=== PATIENT | female | born 1975 | race Asian ===

== ENCOUNTER 2017-07-15 15:26 | Observation (INO) | payer OTHER ==
--- NOTE | 2017-07-15 16:09 | ED Physician Documentation ---
PD HPI FEMALE - Stated complaint Stated Complaint: FEMALE - Chief complaint Chief Complaint: Abd Pain - History obtained from History obtained from: Patient PD PAST MEDICAL HISTORY - Present Medications Home Medications: Ambulatory Orders Medication Instructions Recorded Confirmed No Known Home Medications [No 07/15/17 07/15/17 Known Home Medications] - Allergies Allergies/Adverse Reactions: Allergies Allergy/AdvReac Type Severity Reaction Status Date / Time mefenamic acid Allergy Itching Verified 07/15/17 15:49 Results - Vitals Vitals: Vital Signs - 24 hr 07/15/17 15:41 Temperature 37.0 C Heart Rate 100 Respiratory 18 Rate Blood Pressure 134/82 H O2 Saturation 100 Oxygen O2 Source Room air
[2017-07-15 16:10] LABS: BILIRUBIN,URINE NEGATIVE (NEGATIVE); GLUCOSE, URINE (UA) NEGATIVE (NEGATIVE); KETONES,URINE (UA) NEGATIVE (NEGATIVE); LEUKOCYTE ESTERASE, URINE NEGATIVE (NEGATIVE); NITRITE,URINE NEGATIVE (NEGATIVE); OCCULT BLOOD,URINE LARGE (NEGATIVE); PROTEIN,URINE NEGATIVE (NEGATIVE); UROBILINOGEN,URINE 0.2 (NORMAL) E.U./dL (NORMAL)
[2017-07-15 16:13] LABS: CLARITY,URINE CLEAR (CLEAR)
[2017-07-15 16:14] LABS: HCG UR QUAL NEGATIVE
[2017-07-15] MEDS ORDERED: SODIUM CHLORIDE 0.9% 1,000 ML IV ONE (16:15)
--- NOTE | 2017-07-15 16:19 | ED Physician Documentation ---
PD HPI FEMALE - Stated complaint Stated Complaint: FEMALE - Chief complaint Chief Complaint: Abd Pain - History obtained from History obtained from: Patient - History of Present Illness Timing - onset: Other (1 month of heavy vaginal bleeding without cramps/pain. Has H/O endometrial thickening treated with provera, not currently. Sent from clinic as she was orthostatic.) Timing - details: Gradual onset, Still present Pain level max: 0 Associated symptoms: Vaginal bleeding. No: Abdominal pain, Pelvic pain, Vaginal discharge Similar symptoms before: Diagnosis (thick endometrium) Recently seen: Not recently seen Review of Systems Ten Systems: 10 systems reviewed and negative Constitutional: reports: Fatigue. denies: Fever, Chills Ears: reports: Reviewed and negative Cardiac: reports: Reviewed and negative Respiratory: reports: Reviewed and negative GI: denies: Abdominal Pain, Nausea, Vomiting, Constipation, Diarrhea Neurologic: denies: Syncope PD PAST MEDICAL HISTORY - Past Medical History Past Medical History: Yes DIRECTOR OF QUALITY CONTROL: Endometriosis - Present Medications Home Medications: Ambulatory Orders Medication Instructions Recorded Confirmed No Known Home Medications [No 07/15/17 07/15/17 Known Home Medications] - Allergies Allergies/Adverse Reactions: Allergies Allergy/AdvReac Type Severity Reaction Status Date / Time mefenamic acid Allergy Itching Verified 07/15/17 15:49 - Social History Does the pt smoke?: No Does the pt drink ETOH?: No - Family History Family history: reports: Non contributory PD ED PE NORMAL - Vitals Vital signs reviewed: Yes - General General: Alert and oriented X 3, No acute distress - Neck Neck: Supple, no meningeal sign, No bony TTP - Cardiac Cardiac: RRR, No murmur - Respiratory Respiratory: No respiratory distress, Clear bilaterally - Abdomen Abdomen: Normal bowel sounds, Soft, Non tender - Extremities Extremities: No edema, No calf tenderness / cord - Neuro Neuro: Alert and oriented X 3, Normal speech - Psych Psych: Normal mood, Normal affect Results - Vitals Vitals: Vital Signs - 24 hr 07/15/17 07/15/17 07/15/17 15:41 18:52 19:10 Temperature 37.0 C 36.1 C L 36.1 C L Heart Rate 100 90 93 Respiratory 18 16 25 H Rate Blood Pressure 134/82 H 128/77 132/76 H O2 Saturation 100 99 07/15/17 07/15/17 07/15/17 19:14 19:20 19:27 Temperature 36.3 C L 36.2 C L 36.3 C L Heart Rate 92 95 92 Respiratory 20 23 25 H Rate Blood Pressure 127/76 127/77 129/80 O2 Saturation 07/15/17 07/15/17 07/15/17 19:46 20:07 20:35 Temperature 36.5 C 36.6 C 36.2 C L Heart Rate 90 96 96 Respiratory 22 23 25 H Rate Blood Pressure 129/76 132/72 H 145/78 H O2 Saturation 07/15/17 07/15/17 07/15/17 20:46 20:50 20:55 Temperature 36.7 C 36.5 C 36.5 C Heart Rate 88 90 94 Respiratory 20 20 23 Rate Blood Pressure 125/72 135/79 H 129/82 H O2 Saturation 07/15/17 07/15/17 21:16 21:23 Temperature 36.4 C L Heart Rate 98 100 Respiratory 23 24 Rate Blood Pressure 125/107 H 138/86 H O2 Saturation Oxygen O2 Source Room air - Labs Labs: Laboratory Tests 07/15/17 07/15/17 07/15/17 16:00 16:15 16:15 WBC 10.3 RBC 3.38 L Hgb 5.9 L* Hct 20.0 L* MCV 59.1 L MCH 17.5 L MCHC 29.7 L RDW 20.8 H Plt Count 478 H MPV 8.0 Neut # 7.0 H Lymph # 2.2 [place] # 0.8 Eos # 0.2 Baso # 0.1 Absolute Nucleated RBC 0.14 Nucleated RBC % 1.4 RBC Morph Micro Appear 1+ STOMATOCYTES Sodium 135 Potassium 3.8 Chloride 102 Carbon Dioxide 23 Anion Gap 10.0 BUN 13 Creatinine 0.8 Estimated GFR (MDRD) 79 L Glucose 126 H Calcium 8.6 Total Bilirubin 0.4 AST 39 ALT 32 Alkaline Phosphatase 80 Total Protein 7.8 Albumin 3.6 Globulin 4.2 Albumin/Globulin Ratio 0.9 L Lipase 25 Urine Color YELLOW Urine Clarity CLEAR Urine pH 6.0 Ur Specific Stout 1.020 Urine Protein NEGATIVE Urine Glucose (UA) NEGATIVE Urine Ketones NEGATIVE Urine Occult Blood LARGE H Urine Nitrite NEGATIVE Urine Bilirubin NEGATIVE Urine Urobilinogen 0.2 (NORMAL) Ur Leukocyte Esterase NEGATIVE Urine RBC TNTC H Urine WBC 0-3 Ur Squamous Epith Cells FEW Squamous Urine Bacteria Moderate H Urine Casts 0-2 Hyaline Casts Urine Mucus Few Strands Ur Microscopic Review INDICATED Urine Culture Comments INDICATED Urine HCG, Qual NEGATIVE Slides for Path Review Indicated Blood Type Blood Type Recheck Antibody Screen Crossmatch IS Only 07/15/17 07/15/17 16:20 16:45 WBC RBC Hgb Hct MCV MCH MCHC RDW Plt Count MPV Neut # Lymph # [place] # Eos # Baso # Absolute Nucleated RBC Nucleated RBC % RBC Morph Micro Appear Sodium Potassium Chloride Carbon Dioxide Anion Gap BUN Creatinine Estimated GFR (MDRD) Glucose Calcium Total Bilirubin AST ALT Alkaline Phosphatase Total Protein Albumin Globulin Albumin/Globulin Ratio Lipase Urine Color Urine Clarity Urine pH Ur Specific Stout Urine Protein Urine Glucose (UA) Urine Ketones Urine Occult Blood Urine Nitrite Urine Bilirubin Urine Urobilinogen Ur Leukocyte Esterase Urine RBC Urine WBC Ur Squamous Epith Cells Urine Bacteria Urine Casts Urine Mucus Ur Microscopic Review Urine Culture Comments Urine HCG, Qual Slides for Path Review Blood Type A POSITIVE Blood Type Recheck A POSITIVE Antibody Screen NEGATIVE Crossmatch IS Only See Detail - Rads (name of study) Pelvic sono Radiology: Final report received (Heterogenous myometrium with multiple subserosal fibroids, 15.5 mm endometrium, 4.1 cm simple left ovarian cyst.) PD MEDICAL DECISION MAKING - ED course ED course: 41-year-old woman with subacute but heavy vaginal bleeding presents with orthostasis and is found to have a hemoglobin of 5.9. Blood was crossed and readied and transfused. Ultrasound as shown, spoke with Dr. Qiu who will be in to see her at 7:23 PM. Departure - Departure Disposition: ED Place in Observation Clinical Impression: Acute blood loss anemia, Endometrial thickening on ultra sound Fibroid Qualifiers: Uterine leiomyoma location: subserous Qualified Code(s): D25.2 - Subserosal leiomyoma of uterus
[2017-07-15 16:22] LABS: BACTERIA,URINE Moderate /HPF (None Seen); CASTS, URINE 0-2 Hyaline Casts /LPF; MUCUS,URINE Few Strands; RBC,URINE TNTC /HPF (0-5); SQUAMOUS EPITHELIAL CELL,UR FEW Squamous (<= Few)
[2017-07-15 16:32] LABS: BASOPHILS # (AUTO) 0.1 10^3/uL (0.0-0.1); BASOPHILS % (AUTO) 0.8 %; EOSINOPHILS # (AUTO) 0.2 10^3/uL (0.0-0.7); EOSINOPHILS % (AUTO) 1.8 %; LYMPHOCYTES # (AUTO) 2.2 10^3/uL (1.5-3.5); LYMPHOCYTES % (AUTO) 21.6 %; MEAN CORPUSCULAR HEMOGLOBIN 17.5 pg (27.0-31.0); MEAN CORPUSCULAR HGB CONC 29.7 g/dL (32.0-36.0); MEAN CORPUSCULAR VOLUME 59.1 fL (81.0-99.0); MONOCYTES # (AUTO) 0.8 10^3/uL (0.0-1.0); NEUTROPHILS % (AUTO) 67.8 %; PLT - PLATELET COUNT 478 10^3/uL (130-450); RED BLOOD COUNT 3.38 10^6/uL (4.20-5.40); RED CELL DISTRIBUTION WIDTH 20.8 % (12.0-15.0); WHITE BLOOD COUNT 10.3 x10^3/uL (4.8-10.8)
[2017-07-15 16:35] LABS: HGB - HEMOGLOBIN 5.9 g/dL (12.0-16.0)
[2017-07-15 16:38] LABS: ALBUMIN 3.6 g/dL (3.2-5.5); ALBUMIN/GLOBULIN RATIO 0.9 (1.0-2.2); BILIRUBIN,TOTAL 0.4 mg/dL (0.2-1.0); CALCIUM 8.6 mg/dL (8.5-10.3); CREATININE 0.8 mg/dL (0.4-1.0); TOTAL PROTEIN 7.8 g/dL (6.7-8.2)
--- NOTE | 2017-07-15 19:17 | Ultrasound Preliminary Report ---
Exam: US PELVIC NON OB W/DOPPLER IMPRESSION: 1. Heterogeneous myometrium with multiple subserosal uterine fibroids. 2. Endometrium measures up to 15.5 mm. No focal mass or polyp. 3. 4.1 cm simple left ovarian cyst. Otherwise, the ovaries and adnexa are normal. [facility] SITE ID: [id number]
[2017-07-15] MEDS ORDERED: ESTROGENS, CONJUGATED 25 MG VIAL IVP STA (19:24)
[2017-07-15] MEDS ORDERED: WATER FOR INJECTION,STERILE 10 ML ONE (19:41)
--- NOTE | 2017-07-15 19:55 | Ultrasound Report ---
REVISED: REPORT ORIGINALLY SIGNED ON 07/15/17@1955; ORDERS LINKED ON 2017 jll EXAM: PELVIC ULTRASOUND EXAM DATE: 07/15/2017 06:33 PM. CLINICAL HISTORY: Heavy vaginal bleeding. COMPARISON: None. TECHNIQUE: Realtime transabdominal pelvic scan performed to identify the uterus and adnexa and as an overview of other pelvic structures, followed by transvaginal scan to provide greater detail of the uterus and adnexa, with static image documentation. FINDINGS Uterus: 11.8 x 7.4 x 5.4 cm, volume 246.6 cc. Anteverted position. Mildly heterogeneous with multiple uterine fibroids. Masses: 1. 2.4 x 1.8 x 1.3 cm right anterior lateral subserosal fibroid. 2. 1.8 x 1.9 x 1.2 cm posterior subserosal fibroid. 3. 1.5 x 1.5 x 1.6 cm left lateral subserosal fibroid. Endometrium: 15.5 mm. No focal mass or endometrial polyp. Cervix: Unremarkable. Right Ovary: 3.3 x 2.0 x 1.7 cm, volume 5.8 cc. Normal echotexture and blood flow. Simple follicles are noted. Left Ovary: 5.3 x 3.4 x 2.7 cm, volume 25.4 cc. Normal echotexture and blood flow. Anechoic 4.1 x 2 x 2.2 cm left ovarian cyst. No wall irregularities, mural nodules or thickened septations. Free Fluid: None. Other: None. IMPRESSION 1. Heterogeneous myometrium with multiple subserosal uterine fibroids. 2. Endometrium measures up to 15.5 mm. No focal mass or polyp. 3. 4.1 cm simple left ovarian cyst. Otherwise, the ovaries and adnexa are normal. [facility] Referring Provider Line: [phone] SITE ID: [id number]
[2017-07-15] MEDS ORDERED: ACETAMINOPHEN 325 MG TABLET PO PRN (22:11)
[2017-07-15] MEDS ORDERED: SODIUM CHLORIDE FLUSH 0.9% 10 ML SYRINGE IVP PRN (22:11)
[2017-07-15] MEDS ORDERED: oxyCODONE 5 MG TABLET PO PRN (22:11)
[2017-07-15] MEDS ORDERED: ONDANSETRON 4 MG/2 ML VIAL IVP PRN (22:11)
[2017-07-15] MEDS ORDERED: IRON SUCROSE 200 MG in SODIUM CHLORIDE 0.9% 100ML 100 ML IV ONE (22:16)
[2017-07-15] MEDS: LACTATED RINGERS 1,000 ML IV SCH (22:55)
[2017-07-15 23:02] LABS: % IRON SATURATION 84 % (20-50); IRON 434 ug/dL (28-170); TOTAL IRON BINDING CAPACITY 515 ug/dL (250-450); TRANSFERRIN 368 mg/dL (192-382)
[2017-07-15 23:12] LABS: BASOPHILS # (AUTO) 0.1 10^3/uL (0.0-0.1); BASOPHILS % (AUTO) 0.7 %; EOSINOPHILS # (AUTO) 0.2 10^3/uL (0.0-0.7); EOSINOPHILS % (AUTO) 1.6 %; HGB - HEMOGLOBIN 8.2 g/dL (12.0-16.0); LYMPHOCYTES # (AUTO) 3.1 10^3/uL (1.5-3.5); MEAN CORPUSCULAR HEMOGLOBIN 20.2 pg (27.0-31.0); MEAN CORPUSCULAR HGB CONC 30.4 g/dL (32.0-36.0); MEAN CORPUSCULAR VOLUME 66.2 fL (81.0-99.0); MEAN PLATELET VOLUME 8.2 fL (7.9-10.8); MONOCYTES # (AUTO) 0.9 10^3/uL (0.0-1.0); MONOCYTES % (AUTO) 6.6 %; NEUTROPHILS # (AUTO) 8.7 10^3/uL (1.5-6.6); NEUTROPHILS % (AUTO) 67.1 %; PLT - PLATELET COUNT 362 10^3/uL (130-450); RED BLOOD COUNT 4.06 10^6/uL (4.20-5.40); RED CELL DISTRIBUTION WIDTH 28.4 % (12.0-15.0); WHITE BLOOD COUNT 12.9 x10^3/uL (4.8-10.8)
[2017-07-15 23:35] LABS: PLATELET ESTIMATE, MANUAL NORMAL (130-450,000) (NORMAL); PLATELET MORPHOLOGY 1+ LARGE PLATELETS (NORMAL)
[2017-07-16] MEDS: SODIUM CHLORIDE FLUSH 0.9% 10 ML SYRINGE IVP SCH ×2 (01:00→08:31)
[2017-07-16 06:24] LABS: BASOPHILS # (AUTO) 0.2 10^3/uL (0.0-0.1); BASOPHILS % (AUTO) 1.1 %; EOSINOPHILS # (AUTO) 0.4 10^3/uL (0.0-0.7); EOSINOPHILS % (AUTO) 2.9 %; LYMPHOCYTES # (AUTO) 3.1 10^3/uL (1.5-3.5); LYMPHOCYTES % (AUTO) 21.8 %; MEAN CORPUSCULAR HEMOGLOBIN 19.9 pg (27.0-31.0); MEAN CORPUSCULAR HGB CONC 30.4 g/dL (32.0-36.0); MEAN CORPUSCULAR VOLUME 65.3 fL (81.0-99.0); MEAN PLATELET VOLUME 8.2 fL (7.9-10.8); MONOCYTES # (AUTO) 1.1 10^3/uL (0.0-1.0); MONOCYTES % (AUTO) 8.1 %; NEUTROPHILS # (AUTO) 9.4 10^3/uL (1.5-6.6); NEUTROPHILS % (AUTO) 66.1 %; PLT - PLATELET COUNT 375 10^3/uL (130-450); RED BLOOD COUNT 4.03 10^6/uL (4.20-5.40); RED CELL DISTRIBUTION WIDTH 28.4 % (12.0-15.0); WHITE BLOOD COUNT 14.1 x10^3/uL (4.8-10.8)
[2017-07-16 06:50] LABS: PLATELET ESTIMATE, MANUAL NORMAL (130-450,000) (NORMAL); PLATELET MORPHOLOGY 1+ LARGE PLATELETS (NORMAL)
[2017-07-16 07:44] VITALS: BP 134/82
[2017-07-16] MEDS ORDERED: FERROUS SULFATE 325 MG TABLET PO SCH (08:00)
--- NOTE | 2017-07-16 08:16 | HISTORY & PHYSICAL EXAMINATION ---
DATE OF SERVICE: 07/15/2017 Physician: Casey Qiu MD IDENTIFICATION: The patient is a 41-year-old G3, P2, SAB1 female whose last menstrual period was started about 06/11/2017. CHIEF COMPLAINT: Dizziness. HISTORY OF PRESENT ILLNESS: The patient was seen in a local Urgent [facility] Center , at which time she was noted to be orthostatic. She presented for dizziness. She presented here at which time her workup included a CBC, which showed evidence of anemia of hemoglobin at 5.9, hematocrit was 20.0. She complains she was noted to have heavy vaginal bleeding. This has been going on for the last week. Prior to 06/11/2017, she states she has had normal periods. This particular time, she has been bleeding, having to change a pad 3 times a day. This has been going on for the last month. She will pass clots, several of which are 50 cent piece sizes. She has a history of having heavy periods in the past requiring an endometrial biopsy, which was negative. She was treated with Provera at that time. She has not had any problems since then up until present. She denies any history of any fibroids. She was taking control pills for regulation of her cycles, but stopped these roughly 1 year ago. She would like to have one further child at this time. PAST MEDICAL HISTORY: Positive for hypertension. PAST SURGICAL HISTORY: None. CURRENT MEDICATIONS: She is taking her own iron. She has also been taking Inderal, which she has stopped. HABITS: Patient denies the use of tobacco, street or addictive drugs. She does drink alcohol only occasionally. ALLERGIES: MEFENAMIC ACID. CURRENT MEDICATIONS: Those of iron sulfate as well as Inderal, which she has recently stopped. SOCIAL HISTORY: The patient is . Her ; however, is in the [facility]. Her children are here with her. She works as a dietary automotive maintenance technician. FAMILY HISTORY: Positive for hypertension in both mother and father. REVIEW OF SYSTEMS: Negative with the exception of some lightheadedness. PHYSICAL EXAMINATION VITAL SIGNS: Blood pressure 125/72, pulse is 88, respirations are 20. HEENT: Pupils equal, round. Extraocular muscles intact. Thyroid is not palpably enlarged. HEART: Regular rate and rhythm without murmurs. LUNGS: Lung goodman are clear without rales or wheezes. ABDOMEN: Soft, nontender without evidence of any organomegaly. It is corpulent , therefore palpating any structures is severely limited. BACK: No spinal or CVA tenderness noted. PELVIC: Examination was performed. Prior to this, she had consent for an endometrial biopsy. Pelvic exam revealed the uterus, which were palpated about 14-15 week size. There was difficulty palpating any irregularity secondary to abdominal wall thickness. A speculum was placed, cervix visualized, cleansed with scopettes and then prepped with Betadine x3. A Pipelle was entered into the uterine cavity up to 10 cm. A tissue specimen was drawn with good tissue results. There was no evidence of any bleeding at the end of the procedure. LABORATORY DATA: Ultrasound showed a uterus, which is 11.8 x 7.4 x 5.4 cm is anteverted. There are multiple fibroids. The largest of which are a 2.4 x 1.8 x 1.8 on the right anterior and posterior is 1.8 x 1.5 x 2 cm. The left lateral was noted to be 1.5 x 1.5 x 1.6. There is no note of any submucosal fibroids. She is noted to have a right ovarian cyst, which is 4.1 x 2 x 2.2 cm. This is simple without evidence of any thickening of the santiago. Laboratories on admission: White count was 10.3, hemoglobin is 5.9, hematocrit was 20.0, platelets are 478. MCV is 59.1, MCH is 17.4, RDW is 20.8. She is A positive, antibody negative. IMPRESSION: A 41-year-old G3, P2, AB1 female, with last menstrual period of with menorrhagia. She is noted to have a fibroid uterus and because of her menorrhagia, she is noted to have severe anemia. PLAN: The patient has been transfused with 2 units of packed cells. Endometrial biopsy has been performed. She has been given IV Premarin to stop her bleeding at this point. The patient will follow up in the clinic this next week for potential delineation of care. At this point, patient would like to maintain her uterus as she would like to have one further child. She has been informed that at her age, she is at increased risk for Down syndrome or other chromosomal abnormalities. Also with the fibroids submucosally, they could cause problems with fertility as well as should she become these could give problems with labor. TD: 07/16/2017 08:15 KENDAL
[2017-07-16] MEDS: LACTATED RINGERS 1,000 ML IV SCH (08:30)
[2017-07-16] MEDS ORDERED: NORGESTREL-ETHINYL ESTRADIOL TABLET PO SCH (09:00)
[2017-07-16] MEDS ORDERED: POLYETHYLENE GLYCOL 3350 17 GM PACKET PO SCH (09:00)
--- NOTE | 2017-07-16 09:19 | PROVIDER PROGRESS NOTE ---
Subjective - Prog Note Date Prog Note Date: 07/16/17 Prog Note Time: 09:17 - Subjective Pt reports feeling: Improved (Pt feels increased energy. Bleeding scant. No cramping or any pain. Pt is scheduled for work . Pt has a perccription for BCP.) Objective - Vital Signs/Intake & Output Reviewed Vital Signs: Yes Vital Signs: Vital Signs x48h Temp Pulse Resp BP Pulse Ox 07/16/17 07:43 36.8 C 90 18 134/82 H 100 07/16/17 06:14 36.6 C 91 18 126/70 98 Intake & Output: Intake & Output 07/13/17 07/14/17 07/15/17 07/16/17 23:59 23:59 23:59 23:59 Intake Total 1568.333 Balance 1568.333 - Objective General Appearance: positive: No acute distress, Alert Eyes Bilateral: positive: Normal inspection Respiratory: positive: Chest non-tender, No respiratory distress, Breath sounds nml Cardiovascular: positive: Regular rate & rhythm, No murmur, No gallop Abdomen: positive: Non-tender, No organomegaly, Nml bowel sounds, No distention , Other (corpulant) Extremities: positive: Non-tender. negative: Pedal edema, Abad's sign/cords - Lab Results Fish Bones: 07/16/17 06:08 07/15/17 16:15 Other Labs: Lab Results x24hrs 07/16/17 07/15/17 Range/Units 06:08 23:00 WBC 14.1 H 12.9 H (4.8-10.8) x10^3/uL RBC 4.03 L 4.06 L (4.20-5.40) 10^6/uL Hgb 8.0 L 8.2 L (12.0-16.0) g/dL Hct 26.3 L 26.9 L (37.0-47.0) % MCV 65.3 L 66.2 L (81.0-99.0) fL MCH 19.9 L 20.2 L (27.0-31.0) pg MCHC 30.4 L 30.4 L (32.0-36.0) g/dL RDW 28.4 H 28.4 H (12.0-15.0) % Plt Count 375 362 (130-450) 10^3/uL MPV 8.2 8.2 (7.9-10.8) fL Neut # 9.4 H 8.7 H (1.5-6.6) 10^3/uL Lymph # 3.1 3.1 (1.5-3.5) 10^3/uL [place] # 1.1 H 0.9 (0.0-1.0) 10^3/uL Eos # 0.4 0.2 (0.0-0.7) 10^3/uL Baso # 0.2 H 0.1 (0.0-0.1) 10^3/uL Absolute Nucleated RBC 0.02 0.02 x10^3/uL Nucleated RBC % 0.1 0.2 /100WBC Manual Slide Review Indicated Indicated Platelet Estimate NORMAL (130-450,000) NORMAL (130-450,000) (NORMAL) Platelet Morphology 1+ LARGE PLATELETS 1+ LARGE PLATELETS (NORMAL) RBC Morph Micro Appear 1+ POLYCHROMASIA 1+ HYPOCHROMASIA (NORMAL) - Diagnostic Imaging Diagnostic Imaging Results: positive: Final report reviewed Assessment/Plan - Problem List (1) Fibroid Impression: Pt has multipull fibroids which appear to be subserosal will plan to peruse hysterscopy to rule out submucoasl Qualifiers: Uterine leiomyoma location: subserous Qualified Code(s): D25.2 - Subserosal leiomyoma of uterus (2) Endometrial thickening on ultra sound Impression: EMB done await Path report (3) Acute blood loss anemia Impression: Bleeding abaiting. Hgb stabilized. Pt offered two more units of RBC. Pt would defer at this time. Pt will be taking FeSO4 tid. offered Colace. Start OCP bid for one week than daily for one week and then stop.
--- NOTE | 2017-07-16 09:36 | Discharge Plan ---
Discharge Plan Disposition: 01 Home, Self Care Condition: Good Diet: Regular Activity Restrictions: No Restrictions Shower Restrictions: No Driving Restrictions: No Weight Bearing: Full Weight No Smoking: If you smoke, Please STOP! Call for help. Follow-up with: Casey Qiu MD [Provider Admit Priv/Credential] -
== END 2017-07-16 10:21 | disposition home or self-care (01) ==
LOC: ED 15:26 → OBS 22:12
PROVIDERS: ADMIT Obstetrics & Gynecology; ATTEND Obstetrics & Gynecology
DX: D25.2 Subserosal leiomyoma of uterus (principal); D62 Acute posthemorrhagic anemia; N92.0 Excessive and frequent menstruation with regular cycle
CPT/HCPCS: 36415; 36430; 76830; 76856; 80053; 81001; 81025; 83540; 83690; 84466; 85025; 86850; 86900; 86901; 86920; 87086; 93975; 96361; 96374; 99283; 99285; A9270; G0378; J7120; P9016; S4993; 81003